=== PATIENT | female | born 1990 | race Caucasian/White ===

== ENCOUNTER 2020-06-20 13:35 | Emergency (ER) | payer MEDICAID ==
[~2020-06-20] VITALS: Ht 167.6 cm; Wt 158.8 kg
[2020-06-20 14:28] LABS: Basophils # (auto) 0 10 ^3/uL (0-0.2); Basophils % (auto) 0.5 % (0.0-2.0); Eosinophils # (auto) 0.2 10 ^3/uL (0-0.8); Hematocrit 41.4 % (36.0-46.0); Hemoglobin 14.1 g/dL (12.2-16.2); Lymphocytes # (auto) 2.4 10 ^3/uL (0.4-5.4); Lymphocytes % (auto) 27.5 % (10.0-50.0); Mean Corpuscular Hemoglobin 29.5 pg (28.0-32.0); Mean Corpuscular Hgb Conc. 34.2 g/dL (32.0-36.0); Mean Corpuscular Volume 86.2 fL (80.0-100.0); Monocytes # (auto) 0.3 10 ^3/uL (0-1.3); Neutrophils # (auto) 5.8 10 ^3/uL (1.6-8.6); Platelet Count (auto) 206 10^3/uL (140-450); Red Cell Distribution Width 13.7 % (11.8-14.3); White Blood Cell 8.7 10^3/uL (4.4-10.8)
[2020-06-20 14:51] LABS: Calcium 9.4 mg/dL (8.5-10.1); Potassium 4.2 mmol/L (3.5-5.1)
[2020-06-20 14:56] LABS: BUN/Creatinine Ratio 16.7; Bilirubin, Total 0.4 mg/dL (0.2-1.0)
[2020-06-20 15:21] LABS: Urine Bacteria FEW /hpf (None Seen); Urine Blood 3+ /uL (Negative); Urine Specific Gravity 1.019 (1.001-1.035); Urine WBC 129 /hpf (0 - 5)
[2020-06-20] MEDS ORDERED: cefTRIAXone 1GM/50ML D5W 50 ML IV ONE (19:00)
[2020-06-20 19:03] VITALS: BP 129/85
== END 2020-06-20 19:34 | disposition home or self-care (01) ==
LOC: ER 13:35
DX: N39.0 Urinary tract infection, site not specified (principal); I10 Essential (primary) hypertension
CPT/HCPCS: 36415; 74176; 80053; 81001; 83690; 84702; 85025

== ENCOUNTER 2020-06-28 16:07 | Emergency (ER) | payer MEDICAID ==
[~2020-06-28] VITALS: Ht 167.6 cm; Wt 158.8 kg
[2020-06-28 17:45] VITALS: BP 144/91
[2020-06-28 19:35] LABS: Urine Bacteria FEW /hpf (None Seen); Urine Blood 3+ /uL (Negative); Urine Mucus FEW (None Seen); Urine Specific Gravity 1.018 (1.001-1.035); Urine WBC 263 /hpf (0 - 5)
[2020-06-28] MEDS ORDERED: KETOROLAC TROMETH 60MG/2ML VIAL IM ONE (19:45)
[2020-06-28] MEDS ORDERED: LIDOCAINE 1% HCL (LOCAL ANESTH.) INJ 20ML MDV IJ ONE (20:00)
[2020-06-28] MEDS ORDERED: cefTRIAXone SOD 1,000 MG VL IM ONE (20:00)
== END 2020-06-28 20:34 | disposition home or self-care (01) ==
LOC: ER 16:07
DX: N39.0 Urinary tract infection, site not specified (principal); I10 Essential (primary) hypertension; F41.9 Anxiety disorder, unspecified
CPT/HCPCS: 81001; 81025; 96372; 99284; J0696; J1885; J2001

== ENCOUNTER → 2020-09-05 13:54 | Emergency (ER) | payer MEDICAID ==
[~2020-09-05] VITALS: Ht 162.6 cm; Wt 158.8 kg
[2020-09-05 16:20] VITALS: BP 139/76
== END | disposition home or self-care (01) ==
LOC: ER 13:54
DX: M54.6 Pain in thoracic spine (principal); M54.2 Cervicalgia; N39.0 Urinary tract infection, site not specified; I10 Essential (primary) hypertension; Z32.02 Encounter for pregnancy test, result negative
CPT/HCPCS: 81002; 81025

== ENCOUNTER 2020-12-28 14:52 | Emergency (ER) | payer MEDICAID ==
[~2020-12-28] VITALS: Ht 170.2 cm; Wt 158.8 kg
[2020-12-28 15:00] VITALS: BP 139/79
== END 2020-12-28 18:05 | disposition home or self-care (01) ==
LOC: ER 14:52
DX: S16.1XXA Strain of muscle, fascia and tendon at neck level, initial encounter (principal); K64.4 Residual hemorrhoidal skin tags; E66.01 Morbid (severe) obesity due to excess calories; I10 Essential (primary) hypertension; F41.9 Anxiety disorder, unspecified; Z68.43 Body mass index [BMI] 50.0-59.9, adult; X50.0XXA Overexertion from strenuous movement or load, initial encounter; Y93.89 Activity, other specified; Y92.89 Other specified places as the place of occurrence of the external cause; Y99.8 Other external cause status

== ENCOUNTER 2021-07-09 14:11 | Emergency (ER) | payer MEDICAID ==
[~2021-07-09] VITALS: Ht 167.6 cm; Wt 154.2 kg
[2021-07-09 14:17] VITALS: BP 148/83
== END 2021-07-09 14:46 | disposition home or self-care (01) ==
LOC: ER 14:11
DX: M54.9 Dorsalgia, unspecified (principal); I10 Essential (primary) hypertension; E11.9 Type 2 diabetes mellitus without complications; F41.9 Anxiety disorder, unspecified

== ENCOUNTER 2022-03-15 16:18 | Emergency (ER) | payer MEDICAID ==
[~2022-03-15] VITALS: Ht 167.6 cm; Wt 104.3 kg
[2022-03-15 19:07] VITALS: BP 143/87
== END 2022-03-15 19:12 | disposition home or self-care (01) ==
LOC: ER 16:18
DX: M79.605 Pain in left leg (principal); I10 Essential (primary) hypertension
CPT/HCPCS: 93971

== ENCOUNTER 2023-11-03 18:23 | Emergency (ER) | payer MEDICAID ==
[~2023-11-03] VITALS: Ht 167.6 cm; Wt 159.1 kg
[2023-11-03 19:44] VITALS: BP 120/77; PULSE 124; RESP 20; TEMP 98.3; O2SAT 99
[2023-11-03] MEDS: KETOROLAC TROMETH 60MG/2ML VIAL IM ONE (20:25)
[2023-11-03] MEDS: TETANUS-DIPTH-ACEL PERTUSSIS 0.5ML SYR Tdap IM ONE (20:25)
[2023-11-03] MEDS ORDERED: IBUP-1454 PO (21:28)
== END 2023-11-03 21:32 | disposition home or self-care (01) ==
LOC: EDBD 18:23 → ER 18:23
DX: S01.81XA Laceration without foreign body of other part of head, initial encounter (principal); I10 Essential (primary) hypertension; E11.9 Type 2 diabetes mellitus without complications; M79.18 Myalgia, other site; V43.52XA Car driver injured in collision with other type car in traffic accident, initial encounter; Y93.89 Activity, other specified; Y92.89 Other specified places as the place of occurrence of the external cause; Y99.8 Other external cause status
CPT/HCPCS: 12011; 70450; 70486; 72170; 73060; 90471; 90715; 93005; 96372; 99285; J1885

== ENCOUNTER 2025-05-22 19:15 | Emergency (ER) | payer MEDICAID, OTHER ==
[~2025-05-22] VITALS: Ht 167.6 cm; Wt 104.4 kg
[~2025-05-22 19:15] MED LIST: IBUP-1454 PO
[2025-05-22] MEDS: HYDROcodone-ACET 5/325MG TAB PO ONE (21:00)
[2025-05-22 21:01] VITALS: BP 106/64; PULSE 75; RESP 16; TEMP 98.4; O2SAT 96
[2025-05-22] MEDS: IBUPROFEN 600 MG TAB PO ONE (21:01)
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
[2025-05-22] MEDS ORDERED: AUG875T PO (22:38)
== END 2025-05-22 22:50 | disposition home or self-care (01) ==
LOC: ER 19:15
DX: S20.211A Contusion of right front wall of thorax, initial encounter (principal); J01.00 Acute maxillary sinusitis, unspecified; I10 Essential (primary) hypertension; F41.9 Anxiety disorder, unspecified; Z79.899 Other long term (current) drug therapy; Z88.6 Allergy status to analgesic agent; Z79.1 Long term (current) use of non-steroidal anti-inflammatories (NSAID); V43.52XA Car driver injured in collision with other type car in traffic accident, initial encounter; Y93.89 Activity, other specified; Y92.488 Other paved roadways as the place of occurrence of the external cause; Y99.8 Other external cause status
CPT/HCPCS: 70486; 71111